=== PATIENT | male | born 1940 | race Caucasian/White ===

== ENCOUNTER 2017-05-30 13:18 | Outpatient (RCR) | payer MEDICARE ==
[~2017-05-30 13:18] MED LIST: ASPI81TA; DOC100 PO; DOCU50CA PO; DUT0.5 PO; DUTA0.5C14 PO; FINA5TAB67 PO; IBUP1TAB90 PO; IBUP200C74 PO; IBUP600T22 PO; LOR5/325 PO; ONDA4TAB PO; OXYC1TAB54 PO; PROM-110 PO; SULF-198 PO; ZOLP-1 PO; [UNRECOGNIZED DRUG - CODE] PO
[2017-05-30 13:30] VITALS: BP 143/82
--- NOTE | 2017-06-01 07:55 | [facility] ONCOLOGY NOTE ---
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 HISTORY OF PRESENT ILLNESS The patient returns. He was followed by my colleagues, Dr. Yang and Dr. Rodríguez , for many years. 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 It was causing some diplopia and he had diffuse disease in nearly all lymph nodes with a high Ki-67. He received six cycles of R-CHOP, completing this in January of 2013, and then decided to have 12 cycles of maintenance Rituxan, finishing this in December of 2014. His last scans showed no evidence of disease, and his labs continue to look excellent. He had an episode of small bowel obstruction in 2016, but no lymphoma as the cause. This has resolved with no recurrence. He has a history of bowel surgery in the past, and so adhesions were likely contributing. No new symptoms today. No night sweats, fevers, chills, weight change of concern. No other concerns today. PAST MEDICAL/SURGICAL HISTORY 1. History of thyroid goiter. 2. 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 3. Diffuse large B cell lymphoma. 4. History of skin cancer. 5. History of a Meckel diverticulum. 6. History of a bowel resection due to obstruction in the past. FAMILY HISTORY Remarkable for stomach cancer in the father, who at age 36. Heart disease in the family. SOCIAL HISTORY The patient is and has two adult children. 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 A 15-pack year history of smoking, quitting in 2010. No significant alcohol use. REVIEW OF SYSTEMS CONSTITUTIONAL: No fevers, chills, significant weight change. HEENT: No headache or vision changes. CARDIOVASCULAR: No chest pain, dyspnea on exertion or edema. RESPIRATORY: No shortness of breath, wheeze, cough. GI: No nausea, vomiting, diarrhea or constipation. : No dysuria or hematuria. MUSCULOSKELETAL: No weakness or joint pain. PSYCHIATRIC: No anxiety or depression. SKIN: He had a recent surgery to remove a skin cancer on the right cheek and his healing well. PHYSICAL EXAMINATION VITAL SIGNS: Blood pressure 143/82, pulse 72, respiratory rate 16, temperature 95 Fahrenheit, oxygen saturation 97% on room air. Weight 95.3s kg. Pain 0/10, fatigue 0/10. GENERAL: Stable condition, resting comfortably in the chair. HEENT: Normocephalic, atraumatic. CARDIOVASCULAR: Regular rate and rhythm. LUNGS: Clear. ABDOMEN: Soft, nontender. EXTREMITIES: No clubbing, cyanosis or edema. SKIN: He has stitches on the right cheek from the recent surgery. LYMPHATIC: No appreciable cervical, supraclavicular or axillary adenopathy. The remainder of the physical exam is unremarkable. IMPRESSION AND PLAN The patient is a pleasant 77-year-old gentleman with the following: Diffuse large B cell lymphoma with a high Ki-67, curative his disease. He would like to transition to annual followups, which is reasonable. I will consolidate labs with Dr. Lee and recommend getting a CBC, CMP, immunoglobulin panel and an LDH annually, given his history. I answered all of his many questions today. No new issues. Billing: Return visit level 3. Total time 20 minutes, counseling time 15. MTDD
== END 2017-06-22 14:25 | disposition home or self-care (01) ==
LOC: ONC 13:18
PROVIDERS: ATTEND Internal Medicine
DX: Z85.72 Personal history of non-Hodgkin lymphomas (principal); Z87.891 Personal history of nicotine dependence
CPT/HCPCS: 99212

== ENCOUNTER 2018-01-02 07:02 | Outpatient (RCR) | payer MEDICARE ==
[2018-01-02 15:52] VITALS: BP 131/73
[2018-01-02] MEDS ORDERED: FURO20TA19 PO (15:59)
[2018-01-02] MEDS ORDERED: POTA25TA28 PO (16:03)
[2018-01-02] MEDS ORDERED: INFLUENZA VIRUS VAC 0.5ML SYR IM ONLY ONE (16:40)
--- NOTE | 2018-01-04 12:05 | [facility] ONCOLOGY NOTE ---
EVENT DATE: January 02, 2018 CHIEF COMPLAINT/REASON FOR VISIT Mr. Banegas is a very pleasant gentleman with a history of diffuse large B cell lymphoma five years ago that was doing quite well when I last saw him in May. HISTORY OF PRESENT ILLNESS Rochelle returns. Please see my prior note for additional details. In short, he was diagnosed in 2012 with diffuse large B cell lymphoma and treated with standard chemotherapy. He did well until recently, when he redeveloped night sweats, fatigue, weight loss and other concerns. He has had GI issues. His LDH is markedly elevated at 600 with a normal range up to 240. I am very concerned about risks of relapse versus new primary. I believe the next best step is to get a PET scan. He has had this done in [place] in the past and we will arrange for this and I will see him very quickly in followup. PAST MEDICAL/SURGICAL HISTORY 1. History of thyroid goiter. 2. 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 3. Diffuse large B cell lymphoma. 4. History of skin cancer. 5. History of a Meckel diverticulum. 6. History of a bowel resection due to obstruction in the past. FAMILY HISTORY Remarkable for stomach cancer in the father, who at age 36. Heart disease in the family. SOCIAL HISTORY The patient is and has two adult children. 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 A 15-pack year history of smoking, quitting in 2010. No significant alcohol use. REVIEW OF SYSTEMS CONSTITUTIONAL: Positive fever, fatigue, night sweats, weight loss. He feels cold a lot of the time. HEENT: No headache or vision changes. NEUROLOGIC: No focal deficits or weakness. PSYCHIATRIC: No anxiety or depression. CARDIOVASCULAR: No chest pain, dyspnea on exertion or edema. RESPIRATORY: No shortness of breath, wheeze, cough. GI: No nausea or vomiting. : No dysuria or hematuria. MUSCULOSKELETAL: Positive weakness. ENDOCRINE: No heat or cold intolerance. The remainder of 14-point Review of Systems is negative. PHYSICAL EXAMINATION VITAL SIGNS: Blood pressure 131/73, pulse 88, respiratory rate 16, temperature 96.9 Fahrenheit, oxygen saturation 96% on room air. Weight 92.9 kg. Pain 0/10, fatigue 7/10. GENERAL: Stable condition, resting comfortably in the chair. HEENT: Normocephalic, atraumatic. EXTREMITIES: Diffuse anasarca. He has recently started Lasix and I would like to double it to 20 mg today and increase his potassium to 20 as well. CARDIOVASCULAR: Regular rate and rhythm. His resting heart rate is slightly higher than I would expect but not tachycardia. LUNGS: Clear to auscultation bilaterally. I do believe he may have some small pleural effusions as well at the bases. ABDOMEN: Obese with likely some fluid overload. There is some tenderness in the right upper quadrant but I cannot reproduce it. LYMPHATIC: No obvious cervical, supraclavicular or axillary adenopathy. The remainder of the physical exam is unremarkable. IMPRESSION AND PLAN Mr. Banegas is a very pleasant 77-year-old gentleman with a history of diffuse large B cell that presents with: 1. High concern for relapse of lymphoma versus other hematologic malignancy. I would like to start with the PET scan. This would be a very late relapse of diffuse large B cell lymphoma as it has been more than five years. As a result, we may determine that we need to get a biopsy as well. The next step will be to get a PET scan and see him immediately after to discuss the next steps. He is not at the point where he requires steroids or other immediate treatment but this may change if he continues to weaken. He feels this has been slowly coming on since last June, which does raise the concern of could there be an indolent lymphoma that has been slowly progressive that was not cured by his curative type chemo for diffuse large B cell. I answered all of his many questions today. An extensive amount of time was spent with the family as well as review of the outside records in the [facility]. I answered all of his questions. Billing: Return visit level 5. Total time 45 minutes, counseling time 30. MTDD
[2018-01-04] MEDS ORDERED: POTA20TA94 PO (13:51)
[2018-01-04] MEDS ORDERED: FURO-45 PO (13:51)
== END 2018-01-25 09:57 | disposition home or self-care (01) ==
LOC: ONC 07:02
PROVIDERS: ATTEND Internal Medicine
DX: C83.30 Diffuse large B-cell lymphoma, unspecified site (principal); Z23 Encounter for immunization
CPT/HCPCS: 90471; G0463; Q2037; 90674; 99212